=== PATIENT | female | born 1970 | race Caucasian/White ===

== ENCOUNTER 2022-03-16 00:31 | Emergency (ER) | payer BC ==
[~2022-03-16] VITALS: Ht 160 cm; Wt 100.0 kg
[2022-03-16 00:38] VITALS: BP 129/80
== END 2022-03-16 00:59 | disposition left against medical advice (07) ==
LOC: ER 00:31
DX: Z53.21 Procedure and treatment not carried out due to patient leaving prior to being seen by health care provider (principal)